=== PATIENT | male | born 1970 | race African-American/Black ===

== ENCOUNTER → 2017-03-25 | Outpatient (CLI) | payer OTHER ==
--- NOTE | 2017-03-29 14:03 | Polysomnography ---
DATE OF STUDY: Patient had a home sleep study with 4 channels. HISTORY OF PRESENT ILLNESS: The patient reports excessive daytime fatigue, snoring at night and intermittent apnea at night. He also falls asleep during the day. INTERPRETATION: The patient slept for 430 out of 522 minutes. The sleep efficiency was 81.4%. Sleep onset latency was 4 minutes. The patient had 385 apneic and hypopneic events. The apnea hypopnea index was 57.6 events per hour. IMPRESSION: Severe obstructive sleep apnea. RECOMMENDATIONS 1. Second night sleep study with CPAP titration. 2. Avoid alcohol or sedatives at night. 3. Medically supervised weight loss. Job#: [id number] VALERIE
== END ==
LOC: SLEEP 19:17
PROVIDERS: ATTEND Internal Medicine
DX: G47.33 Obstructive sleep apnea (adult) (pediatric) (principal)
CPT/HCPCS: 95806